=== PATIENT | female | born 1955 | race Caucasian/White ===

== ENCOUNTER 2022-11-07 10:08 | Emergency (ER) | payer OTHER ==
[~2022-11-07] VITALS: Ht 157.5 cm; Wt 64.9 kg
[~2022-11-07 10:08] MED LIST: CENESTIN; CIME300; CYCL10 PO; HYDACE5 PO; IBUP800; META400; NORETHINDRONE; VICODIN
[2022-11-07 10:13] VITALS: BP 155/68
[2022-11-07] MEDS ORDERED: Prednisone10 MG PO (10:30)
[2022-11-07] MEDS ORDERED: Ventolin/Prove6.7 GM (10:30)
[2022-11-07] MEDS ORDERED: ESTRADIOL1 M1 PO (10:31)
== END 2022-11-07 10:49 | disposition home or self-care (01) ==
LOC: ER 10:08
DX: L50.9 Urticaria, unspecified (principal); Z79.899 Other long term (current) drug therapy
CPT/HCPCS: 99283; J1100